=== PATIENT | female | born 1990 | race Hispanic/Latino ===

== ENCOUNTER 2018-01-04 11:06 | Emergency (ER) | payer BC ==
[2018-01-04 11:26] VITALS: BMI 34.0
[2018-01-04 11:27] VITALS: BP 109/63; PULSE 88; RESP 18; TEMP 98.5; O2SAT 97
--- NOTE | 2018-01-04 11:50 | ED PDOC ---
Arrival/HPI - General Historian: Patient - History of Present Illness Narrative History of Present Illness (Text): 01/04/18 11:44 27 year old female with no pertinent past medical history presents to the emergency department status post trip yesterday. Patient states she tripped prior to going to work yesterday. Patient does admit to icing and wrapping the ankle last night, however patient still reports some difficulty in ambulating completely on foot. Patient denies any fevers, chills, chest pain, shortness of breath, nausea, vomiting, syncopal episodes, or any other complaints. PMD: Denies Past medical history: Denies Allergies: Denies Medications: Denies Surgical history: Denies Time/Duration: 24 hours Symptom Onset: Sudden Symptom Course: Unchanged Quality: Throbbing Severity Level: 5 Activities at Onset: Rest Context: Sitting <Kamron Veronica - Last Filed: 01/04/18 17:36> <Montez Chapa - Last Filed: 01/04/18 18:52> - General Chief Complaint: Lower Extremity Problem/Injury Past Medical History - Provider Review Nursing Documentation Reviewed: Yes - Travel History Have you recently traveled outside [place] w/in the past 3 mons?: No - Infectious Disease Hx of Infectious Diseases: None - Tetanus Immunization Tetanus Immunization: Unknown - Past Medical History Past Medical History: No Previous - Cardiac Hx Cardiac Disorders: No - Pulmonary Hx Respiratory Disorders: No - Neurological Hx Neurological Disorder: No - HEENT Hx HEENT Disorder: No - Renal Hx Renal Disorder: No - Endocrine/Metabolic Hx Endocrine Disorders: No - Hematological/Oncological Hx Blood Disorders: No - Integumentary Hx Dermatological Disorder: No - Musculoskeletal/Rheumatological Hx Musculoskeletal Disorders: No - Gastrointestinal Hx Gastrointestinal Disorders: No - Genitourinary/Gynecological Hx Genitourinary Disorders: No - Psychiatric Hx Psychophysiologic Disorder: No Hx Substance Use: No - Past Surgical History Past Surgical History: No Previous - Suicidal Assessment Feels Threatened In Home Enviroment: No <Kamron Veronica - Last Filed: 01/04/18 17:36> Family/Social History - Physician Review Nursing Documentation Reviewed: Yes Family/Social History: No Known Family HX Smoking Status: Never Smoked Hx Alcohol Use: No Hx Substance Use: No Hx Substance Use Treatment: No <Kamron Veronica - Last Filed: 01/04/18 17:36> Allergies/Home Meds <Kamron Veronica - Last Filed: 01/04/18 17:36> <SammiMontez - Last Filed: 01/04/18 18:52> Allergies/Adverse Reactions: Allergies No Known Allergies Allergy (Verified 01/04/18 11:27) Home Medications: Home Meds Medication Instructions Recorded Confirmed RX: No Known Home Med 01/04/18 01/04/18 Review of Systems - Physician Review All systems were reviewed & negative as marked: Yes - Review of Systems Constitutional: Normal. absent: Fatigue, Weight Change, Fevers Eyes: Normal. absent: Vision Changes, Photophobia ENT: Normal. absent: Hearing Changes Respiratory: Normal. absent: SOB, Cough, Sputum Cardiovascular: Normal. absent: Chest Pain, Palpitations Gastrointestinal: Normal. absent: Abdominal Pain, Vomiting, Food Intolerance Genitourinary Female: Normal. absent: Dysuria, Frequency Musculoskeletal: Other (Ankle pain). absent: Arthralgias Skin: Other (ecchymosis on the left ankle near malleoulus). absent: Rash Neurological: Normal. absent: Headache, Dizziness Endocrine: Normal. absent: Diaphoresis, Polyuria Hemo/Lymphatic: Normal. absent: Adenopathy, Easy Bleeding Psychiatric: Normal. absent: Anxiety, Depression <Joao Veronican - Last Filed: 01/04/18 17:36> Physical Exam Vital Signs Reviewed: Yes Vital Signs Temp Pulse Resp BP Pulse Ox 01/04/18 11:26 98.5 F 88 18 109/63 97 Temperature: Afebrile Blood Pressure: Normal Pulse: Regular Respiratory Rate: Normal Appearance: Positive for: Well-Appearing, Non-Toxic, Comfortable Pain Distress: None Mental Status: Positive for: Alert and Oriented X 3. No: Confused - Systems Exam Head: Present: Atraumatic, Normocephalic. No: Abrasion Pupils: Present: PERRL. No: Sluggish Extroacular Muscles: Present: EOMI. No: Gaze Palsy Conjunctiva: Present: Normal. No: Injected Mouth: Present: Moist Mucous Membranes. No: Dry, Normal Teeth Neck: Present: Normal Range of Motion. No: Meningeal Signs, JVD Respiratory/Chest: Present: Clear to Auscultation, Good Air Exchange. No: Wheezes Cardiovascular: Present: Regular Rate and Rhythm, Normal S1, S2. No: Murmurs, Tachycardic Abdomen: Present: Tenderness (Left ankle tenderness upon palpation), Normal Bowel Sounds. No: McBurney's Point Tender Upper Extremity: Present: Normal Inspection. No: Cyanosis, Edema, Swelling, Erythema Lower Extremity: Present: Edema, Tenderness (left ankle) Neurological: Present: CN II-XII Intact, Speech Normal. No: Normal Cerebellar Funct Skin: Present: Dry, Other (ecchymosis on left lateral ankle) <Kamron Veronica - Last Filed: 01/04/18 17:36> Vital Signs Temp Pulse Resp BP Pulse Ox 01/04/18 11:26 98.5 F 88 18 109/63 97 <Montez Chapa - Last Filed: 01/04/18 18:52> Medical Decision Making ED Course and Treatment: 01/04/18 12:04 27 year old female with no past medical history presents status post trip before work. R/O Fracture vs. Ligament sprain Plan: Left ankle xray Motrin 01/04/18 12:26 Pain improved. Left ankle xray negative - RAD Interpretation Radiology Orders: 01/04/18 11:43 ANKLE LEFT 3 VIEWS ROUTINE [RAD] Stat <Kamron Veronica - Last Filed: 01/04/18 17:36> ED Course and Treatment: Seen and examined with resident. 27 year old F p/w ankle pain. On exam, tenderness over ATFL. - RAD Interpretation Radiology Orders: 01/04/18 11:43 ANKLE LEFT 3 VIEWS ROUTINE [RAD] Stat <Montez Chapa - Last Filed: 01/04/18 18:52> Disposition/Present on Arrival - Present on Arrival Any Indicators Present on Arrival: No History of DVT/PE: No History of Uncontrolled Diabetes: No Urinary Catheter: No History of Decub. Ulcer: No History Surgical Site Infection Following: None - Disposition Have Diagnosis and Disposition been Completed?: Yes Disposition Time: 12:27 Patient Plan: Discharge <Kamron Veronica - Last Filed: 01/04/18 17:36> <Montez Chapa - Last Filed: 01/04/18 18:52> - Disposition Diagnosis: Ankle sprain Disposition: HOME/ ROUTINE Condition: IMPROVED Additional Instructions: 1. F/u with PMD within 2 days of discharge. 2. F/u with Orthopedics within 2 days of discharge. 3. Return to hospital for any new or worsening symptoms. Referrals: Jailene Stephen MD [Staff Provider] - Follow up with primary Forms: [id number] (Serbian)
--- NOTE | 2018-01-04 12:22 | RAD ---
Date of service: 01/04/2018 PROCEDURE: Left Ankle Radiographs. HISTORY: s/p trip COMPARISON: None available. FINDINGS: BONES: Normal. No fracture. JOINTS: Normal. No osteoarthritis. Ankle mortise maintained. Talar dome intact SOFT TISSUES: Lateral soft tissue swelling OTHER FINDINGS: None. IMPRESSION: No evidence of fracture
== END 2018-01-04 12:47 | disposition home or self-care (01) ==
LOC: ED 11:06
DX: S93.402A Sprain of unspecified ligament of left ankle, initial encounter (principal); W01.0XXA Fall on same level from slipping, tripping and stumbling without subsequent striking against object, initial encounter; Y99.0 Civilian activity done for income or pay